=== PATIENT | female | born 1990 ===

== ENCOUNTER 2021-08-17 05:47 | Day surgery (SDC) | payer OTHER ==
[~2021-08-17 05:47] MED LIST: CODE1TAB37 PO; Mylicon 125MG PO; SENOKOT-S TABL1 EACH PO; [UNRECOGNIZED DRUG - OTHER] PO
== END 2021-08-17 17:10 | disposition home or self-care (01) ==
LOC: CIR.AMB 05:47
PROVIDERS: ATTEND Obstetrics & Gynecology
DX: N84.0 Polyp of corpus uteri (principal)